=== PATIENT | male | born 1935 | race African-American/Black ===

== ENCOUNTER 2019-07-07 11:46 | Inpatient (IN) | payer MEDICARE, OTHER ==
[~2019-07-07] VITALS: Ht 182.9 cm; Wt 79.4 kg
[2019-07-07] MEDS ORDERED: FENTANYL CITRATE/PF 50MCG/ML 2ML VIAL IV ONE (14:15)
[2019-07-07 14:31] LABS: BASOPHILS % 0.2 % (0.0-2.0); EOSINOPHILS % 0.5 % (0.0-5.0); HEMATOCRIT. 43.3 % (42.0-52.0); HEMOGLOBIN. 14.3 g/dL (14.0-18.0); LYMPHOCYTES % 8.8 % (20.0-50.0); MEAN CORPUSCULAR VOLUME 87.7 fL (80.0-94.0); MEAN PLATELET VOLUME 8.6 fl (7.4-10.4); MONOCYTES % 6.2 % (2.0-8.0); NEUTROPHILS % 84.3 % (40.0-76.0); PLATELET 135 x1000/uL (130-400); RED BLOOD CELL COUNT 4.94 mill/uL (4.7-6.1); RED CELL DISTRIBUTION WIDTH 14.8 % (11.6-14.6)
[2019-07-07 14:38] LABS: INR 1.2; PROTHROMBIN TIME 11.8 sec (9.6-11.0)
[2019-07-07 16:00] VITALS: BP 131/104
[2019-07-07] MEDS ORDERED: DORZ10DR9 EACHEYE (16:29)
[2019-07-07] MEDS ORDERED: TRAMADOL 50MG TABLET PO PRN (16:30)
[2019-07-07] MEDS ORDERED: MAGNESIUM/ALUMINUM HYDROXIDE/SIMETHICONE 30ML UDC PO PRN (16:30)
[2019-07-07] MEDS ORDERED: GUAIFENESIN 200MG/10ML SUGAR FREE UDC PO PRN (16:30)
[2019-07-07] MEDS ORDERED: NITROGLYCERIN 0.4MG TABLET SL SL PRN (16:30)
[2019-07-07] MEDS ORDERED: ACETAMINOPHEN 325MG TABLET PO PRN (16:30)
[2019-07-07] MEDS ORDERED: ZOLPIDEM TARTRATE 5MG TABLET PO PRN (16:30)
[2019-07-07] MEDS ORDERED: IPRATROPIUM/ALBUTEROL 0.5-3(2.5)MG/3ML NEB INH PRN (16:30)
[2019-07-07] MEDS ORDERED: DOCUSATE SODIUM 100MG CAPSULE PO PRN (16:30)
[2019-07-07] MEDS ORDERED: ONDANSETRON HCL 4MG/2ML INJ IV PRN (16:30)
[2019-07-07] MEDS ORDERED: MORPHINE SULFATE 2 MG/ML CPJ (NOT FOR IM USE) IV PRN (16:30)
[2019-07-07] MEDS ORDERED: XALAO EACHEYE (16:31)
[2019-07-07] MEDS ORDERED: ASPI-1393 PO (16:31)
[2019-07-07] MEDS ORDERED: AMLO5TAB88 MT (16:31)
[2019-07-07] MEDS: FERROUS SULFATE 300MG/5ML UDC PO SCH ×2 (17:55→18:39)
[2019-07-07] MEDS: ENOXAPARIN 30MG/0.3ML SYR SUBCUT SCH (17:55)
[2019-07-07 20:00] VITALS: BP 173/83
[2019-07-07] MEDS: FAMOTIDINE 20MG TABLET PO SCH (20:52)
[2019-07-07] MEDS: CLONIDINE 0.1MG TABLET PO PRN (20:52)
[2019-07-07] MEDS: ASCORBIC ACID 500 MG TABLET PO SCH (20:52)
[2019-07-07] MEDS: METOPROLOL TARTRATE 25MG TABLET PO SCH (20:53)
[2019-07-08] VITALS: BP 149/74
[2019-07-08 04:00] VITALS: BP 166/63
[2019-07-08 08:00] VITALS: BP 150/62
[2019-07-08] MEDS: FERROUS SULFATE 300MG/5ML UDC PO SCH ×3 (10:56→17:30)
[2019-07-08] MEDS: ZINC SULFATE 220 MG ( 50 ) CAPSULE PO SCH (10:56)
[2019-07-08] MEDS: ASCORBIC ACID 500 MG TABLET PO SCH ×2 (10:56→22:59)
[2019-07-08] MEDS: METOPROLOL TARTRATE 25MG TABLET PO SCH ×2 (10:57→22:59)
[2019-07-08 12:00] VITALS: BP 142/62
[2019-07-08 16:00] VITALS: BP 159/61
[2019-07-08] MEDS: ENOXAPARIN 30MG/0.3ML SYR SUBCUT SCH (17:21)
[2019-07-08 20:00] VITALS: BP 168/74
[2019-07-08] MEDS: FAMOTIDINE 20MG TABLET PO SCH (22:59)
[2019-07-08] MEDS: CLONIDINE 0.1MG TABLET PO PRN (23:58)
[2019-07-09] VITALS: BP 173/78
[2019-07-09 04:00] VITALS: BP 147/67
[2019-07-09] MEDS ORDERED: BACITRACIN 15GM TUBE TOP ONE (06:46)
[2019-07-09] MEDS ORDERED: NORMAL SALINE 0.9% 10 ML SYR ONE (06:47)
[2019-07-09] MEDS ORDERED: VANCOMYCIN HCL 500 MG/VIAL ONE (06:47)
[2019-07-09] MEDS ORDERED: BACITRACIN 50,000 UNITS/VIAL ONE (06:47)
[2019-07-09] MEDS: FERROUS SULFATE 300MG/5ML UDC PO SCH ×3 (07:50→18:04)
[2019-07-09] MEDS ORDERED: FENTANYL CITRATE/PF 50MCG/ML 2ML VIAL ONE (08:04)
[2019-07-09] MEDS ORDERED: LIDOCAINE HCL/PF 1% 10 MG/ML 5ML VIAL ONE (08:04)
[2019-07-09] MEDS ORDERED: DEXAMETHASONE 4MG/ML 1ML VIAL ONE (08:04)
[2019-07-09] MEDS ORDERED: PHENYLEPHRINE HCL 10 MG/ML 1ML (IV VIAL) IV ONE (08:04)
[2019-07-09] MEDS ORDERED: MIDAZOLAM HCL 2 MG/2 ML VIAL ONE (08:04)
[2019-07-09] MEDS ORDERED: EPHEDRINE SULFATE 50MG/ML VIAL ONE (08:04)
[2019-07-09] MEDS ORDERED: SODIUM CHLORIDE 0.9% 10ML VIAL ONE (08:05)
[2019-07-09] MEDS ORDERED: PROPOFOL 200MG/20ML VIAL IV ONE (08:34)
[2019-07-09] MEDS ORDERED: ROCURONIUM BROMIDE 10MG/ML VIAL 5ML IV ONE (08:37)
[2019-07-09] MEDS ORDERED: TERBUTALINE SULFATE 1MG/ML VIAL ONE (08:55)
[2019-07-09] MEDS: ASCORBIC ACID 500 MG TABLET PO SCH ×2 (09:00→22:22)
[2019-07-09] MEDS: ZINC SULFATE 220 MG ( 50 ) CAPSULE PO SCH (09:00)
[2019-07-09] MEDS: METOPROLOL TARTRATE 25MG TABLET PO SCH ×2 (09:00→22:33)
[2019-07-09] MEDS ORDERED: CEFAZOLIN SODIUM 1000MG/VIAL ONE (09:02)
[2019-07-09] MEDS ORDERED: ONDANSETRON HCL 4MG/2ML INJ ONE (09:17)
[2019-07-09] MEDS ORDERED: NEOSTIGMINE METHYLSULFATE 1MG/ML 10 ML VIAL ONE (10:00)
[2019-07-09] MEDS ORDERED: GLYCOPYRROLATE 0.2 MG/ML 2ML VIAL ONE (10:00)
[2019-07-09] MEDS ORDERED: HYDROMORPHONE HCL/PF 2MG/ML CPJ IV PRN (11:15)
[2019-07-09] MEDS ORDERED: CEFAZOLIN 1000MG PREMIX 50 ML IV SCH (14:00)
[2019-07-09 16:00] VITALS: BP 107/49
[2019-07-09] MEDS: ENOXAPARIN 30MG/0.3ML SYR SUBCUT SCH (18:04)
[2019-07-09 20:00] VITALS: BP 143/69
[2019-07-09] MEDS ORDERED: CEPHALEXIN 250MG CAPSULE PO NR (22:00)
[2019-07-09] MEDS: FAMOTIDINE 20MG TABLET PO SCH (22:22)
[2019-07-10] VITALS: BP 140/47
[2019-07-10 04:00] VITALS: BP 126/100
[2019-07-10 08:00] VITALS: BP 144/63
[2019-07-10] MEDS: ASCORBIC ACID 500 MG TABLET PO SCH ×2 (09:23→21:36)
[2019-07-10] MEDS: METOPROLOL TARTRATE 25MG TABLET PO SCH ×2 (09:23→21:37)
[2019-07-10] MEDS: ZINC SULFATE 220 MG ( 50 ) CAPSULE PO SCH (09:24)
[2019-07-10] MEDS: FERROUS SULFATE 300MG/5ML UDC PO SCH ×3 (09:25→18:33)
[2019-07-10 12:35] VITALS: BP 147/58
[2019-07-10 16:04] VITALS: BP 135/93
[2019-07-10] MEDS: ENOXAPARIN 30MG/0.3ML SYR SUBCUT SCH (17:00)
[2019-07-10 20:00] VITALS: BP 135/63
[2019-07-10] MEDS ORDERED: LATANOPROST 0.005% OPHTH DROPS 2.5ML EACHEYE SCH (21:00)
[2019-07-10] MEDS: FAMOTIDINE 20MG TABLET PO SCH (21:36)
[2019-07-10] MEDS: TIMOLOL MALEATE 0.25% OPHTH DROPS 5ML EACHEYE SCH (21:37)
[2019-07-11] VITALS: BP 167/70
[2019-07-11 04:00] VITALS: BP 169/79
[2019-07-11 08:00] VITALS: BP 150/68
[2019-07-11] MEDS: ZINC SULFATE 220 MG ( 50 ) CAPSULE PO SCH (08:29)
[2019-07-11] MEDS: METOPROLOL TARTRATE 25MG TABLET PO SCH (08:29)
[2019-07-11] MEDS: TIMOLOL MALEATE 0.25% OPHTH DROPS 5ML EACHEYE SCH (08:29)
[2019-07-11] MEDS: ASCORBIC ACID 500 MG TABLET PO SCH (08:29)
[2019-07-11] MEDS: FERROUS SULFATE 300MG/5ML UDC PO SCH ×3 (08:35→17:13)
[2019-07-11 12:00] VITALS: BP 127/67
[2019-07-11 16:00] VITALS: BP 156/71
[2019-07-11] MEDS: ENOXAPARIN 30MG/0.3ML SYR SUBCUT SCH (17:13)
[2019-07-11 17:36] VITALS: BP 134/70
== END 2019-07-11 18:11 | DRG 469 ==
LOC: ER 11:46 → EDBEDREQ 14:18 → ENRESERV 14:38 → 6EST 16:05
PROVIDERS: ADMIT Internal Medicine; ATTEND Internal Medicine
PROC: 0SRR01Z Replacement of Right Hip Joint, Femoral Surface with Metal Synthetic Substitute, Open Approach (ICD-10-PCS; principal; 2019-07-09)
DX: S72.001A Fracture of unspecified part of neck of right femur, initial encounter for closed fracture (principal); N17.0 Acute kidney failure with tubular necrosis; I10 Essential (primary) hypertension; W18.39XA Other fall on same level, initial encounter; Y93.89 Activity, other specified; Y92.89 Other specified places as the place of occurrence of the external cause; Y99.8 Other external cause status
CPT/HCPCS: 36415; 71045; 72170; 73502; 80048; 80061; 82962; 83036; 86850; 86900; 88305; 88311; 93005; 96372; 96374; 97162; 97530; 99285; J0690; J1100; J1650; J2250; J2270; J2370; J2405; J2704; J2710; J3010; J3105; J3370; J3490